=== PATIENT | male | born 1960 | race Hispanic/Latino ===

== ENCOUNTER 2016-09-01 09:28 | Inpatient (IN) | payer BC ==
[2016-09-01 10:00] VITALS: BMI 34.8
[2016-09-01 10:25] LABS: INR 1.2
[2016-09-01] MEDS ORDERED: Midazolam 2 MG/2 ML VIAL ONE (10:45)
[2016-09-01] MEDS ORDERED: Propofol 10 mg/ml Inj (20 ML) ONE (10:45)
[2016-09-01] MEDS ORDERED: metroNIDAZOLE IV 500 mg/100 ml 500 MG/100 ML BAG ONE (11:21)
[2016-09-01] MEDS ORDERED: ceFAZolin 1 gm FROZEN Premix 1 GM/50 ML ML IVPB ONE (11:22)
[2016-09-01] MEDS ORDERED: Rocuronium 10 mg/ml (5 ml) ONE (12:15)
[2016-09-01] MEDS ORDERED: Lactated Ringer's 1,000 ML IV ONE (13:02)
--- NOTE | 2016-09-01 13:05 | PCM.SURG1 ---
Surgeon's Initial Post Op Note - Surgeon's Notes Surgeon: Varun Hand Or Machine Paster: Allison PGY2 Type of Anesthesia: General Endo Pre-Operative Diagnosis: Appendicitis and umbilical hernia Operative Findings: acutely inflamed appendix and chronic incarcerated umbilical hernia Post-Operative Diagnosis: same Operation Performed: laparoscopic appendectomy and primary closure of umbilical hernia Specimen/Specimens Removed: appendix Estimated Blood Loss: EBL {In ML}: 25 Blood Products Given: N/A Drains Used: No Drains Post-Op Condition: Good Date of Surgery/Procedure: 09/01/16 Time of Surgery/Procedure: 13:04
[2016-09-01] MEDS ORDERED: Oxycodone/Acetaminophen 5/325 mg Tab PO PRN (13:07)
--- NOTE | 2016-09-01 13:11 | OP ---
PROCEDURE DATE: 09/01/2016 PREOPERATIVE DIAGNOSIS: Appendicitis. POSTOPERATIVE DIAGNOSIS: Appendicitis. PROCEDURES CARRIED OUT: 1. Laparoscopic appendectomy. 2. Open repair of chronically incarcerated umbilical hernia. SURGEON: Lex Bond Jr., MD SANDWICH HAND: Dr. Cooper. ANESTHESIOLOGIST: Dr. Rader. INDICATIONS: The patient is a 56-year-old male who is seen for evaluation of episodes of abdominal p ain. Had a CAT scan that showed appendicitis. White count was not elevated. Clinical findings were unremarkable. OPERATIVE FINDINGS: The appendix was thick and acutely inflamed. A standard laparoscopic appendecto my was carried out using two 12 mm and one 5 mm ports. There was no evidence of other intraabdominal problems. There was a very small right inguinal hernia. The left side, I was unable to visualize a dequately to see if there was a small hernia or not on the left side. In addition, there was a chron ically incarcerated umbilical hernia. DESCRIPTION OF PROCEDURE: The patient was given general anesthesia and intravenous antibiotics. Jon odyne boots were applied. A Veress needle was inserted in the midline and a 5 mm port inserted were a camera was then inserted, and then we inserted 2 additional trocars under direct vision. After thi s had been done, we had placed 3 trocars in toto. We had identified the appendix. We mobilized it. We divided the mesoappendix with a stapling device. We then divided the base of the appendix well b eyond the point of the inflammation. After checking for hemostasis, we removed the appendix in a bag . We checked again for hemostasis and it was excellent. We then used closure devices to close the t wo 12 mm ports, and these closed well and with no air leak. We then turned our attention to the umbi licus. We reprepped, redraped. Inasmuch as the only contact with an infected appendix had been in a bag which was removed and opened off the field, we proceeded then with repair this chronically incar cerated hernia through a separate incision. This was incarcerated omentum. There was no bowel invol mildred. This was reduced. After hemostasis was obtained, a V-Loc type suture was used to close the fas cial defect. No mesh was used because of the concurrent appendectomy. The skin was closed with a unger bcuticular closure. Blood loss for both procedures was less than 25 mL. OPERATION CARRIED OUT: Laparoscopic appendectomy and then open repair of umbilical hernia; no mesh w as used. Lex Bond Jr., MD cc:Lin Yeboah MD 57 TT: 09/01/2016 13:11:38 mn
--- NOTE | 2016-09-01 17:59 | CP.PCM.CON ---
<Darron Jeffery - Last Filed: 09/01/16 17:53> History of Present Illness - History of Present Illness History of Present Illness: 56M with pmh of Sarcoidosis, DM, HLD, HTN, presented s/p appedectomy, and umbilical hernia repair. Pt. had RLQ pain 1 week ago and was evaluated at his primary care physicians office several days later. She recommended CT Abd/ Pelvis which showed evidence of appendicitis and then was seen by surgery and scheduled today for the OR. Surgery was unremarkable and pt. tolerated procedure well and had no complaints. He denies headache, fever, chills, chest pain, difficulty breathing, nausea, vomiting, diarrhea, or any GI/ symptoms. PMD. Dr. 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 working at [employer]: denies Alc: denies Drug: denies Lives with family All: Tetnus - Angioedema Review of Systems - Review of Systems All systems: reviewed and no additional remarkable complaints except - Constitutional Constitutional: absent: Chills, Fever, Headache - EENT Eyes: absent: Blurred Vision, Change in Vision - Respiratory Respiratory: absent: Cough, Dyspnea, Hemoptysis - Gastrointestinal Gastrointestinal: absent: Abdominal Pain, Diarrhea, Nausea, Vomiting - Genitourinary Genitourinary: absent: Difficulty Urinating, Dysuria, Pyuria - Musculoskeletal Musculoskeletal: absent: Back Pain, Joint Swelling, Limited Range of Motion, Neck Pain, Numbness, Tingling - Integumentary Integumentary: absent: Rash, Skin Pain, Wounds - Neurological Neurological: absent: Behavioral Changes, Dizziness, Numbness, Loss of Vision, Tingling, Weakness - Endocrine Endocrine: absent: Fatigue, Flushing, Heat Intolorance, Palpitations, Polyuria Past Patient History - Past Medical History & Family History Past Medical History?: Yes - Past Social History Smoking Status: Never Smoked Chewing Tobacco Use: No Cigar Use: No Alcohol: None Drugs: Denies Home Situation {Lives}: With Family - CARDIAC Hx Hypercholesterolemia: Yes Hx Hypertension: Yes - PULMONARY Hx Respiratory Disorders: Yes (sarcoidosis) - NEUROLOGICAL Hx Neurological Disorder: Yes Hx Transient Ischemic Attacks (TIA): Yes (2 years ago) - HEENT Hx HEENT Problems: No - RENAL Hx Chronic Kidney Disease: No Hx Kidney Stones: Yes - ENDOCRINE/METABOLIC Hx Endocrine Disorders: Yes Hx Diabetes Mellitus Type 2: Yes - HEMATOLOGICAL/ONCOLOGICAL Hx Blood Disorders: No - INTEGUMENTARY Hx Dermatological Problems: No - MUSCULOSKELETAL/RHEUMATOLOGICAL Hx Musculoskeletal Disorders: Yes Hx Fractures: Yes (foot left collarbone left hx vetebrae) - GASTROINTESTINAL Hx Gastrointestinal Disorders: Yes Hx Diverticulitis: Yes (diverticulosis) - GENITOURINARY/GYNECOLOGICAL Hx Genitourinary Disorders: No - PSYCHIATRIC Hx Psychophysiologic Disorder: No - SURGICAL HISTORY Hx Surgeries: Yes Hx Arthroscopy: Yes Other/Comment: bx sarcoidosis - ANESTHESIA Hx Anesthesia: Yes Hx Anesthesia Reactions: No Hx Malignant Hyperthermia: No Has any member of the family had a problem w/ anesthesia?: No Meds Allergies/Adverse Reactions: Allergies Allergy/AdvReac Type Severity Reaction Status Date / Time Tetanus Vaccines and Toxoid Allergy ANGIOEDEMA Verified 09/01/16 09:55 - Medications Medications: Current Medications Clopidogrel Bisulfate (Plavix) 75 mg PO DAILY [facility] Lactated Ringer's (Lactated Ringer's) 1,000 mls @ 100 mls/hr IV .Q10H RAE Cefazolin Sodium 500 mg/ (Sodium Chloride) 50 mls @ 100 mls/hr IVPB Q8H RAE Metronidazole (Flagyl) 500 mg in 100 mls @ 100 mls/hr IVPB Q8H RAE Losartan Potassium (Cozaar) 100 mg PO DAILY [facility] Kptxt-6-Stad Ethyl Esters (Lovaza) 1 gm PO DAILY [facility] Ondansetron HCl (Zofran Inj) 4 mg IVP Q4 PRN PRN Reason: Nausea/Vomiting Oxycodone/Acetaminophen (Percocet 5/325 Mg Tab) 1 tab PO Q4H PRN PRN Reason: Pain, moderate (4-7) Stop: 09/04/16 13:08 Pioglitazone HCl (Actos) 45 mg PO DAILY RAE Rosuvastatin Calcium (Crestor) 20 mg PO HS RAE Vitamin B Complex/Vitamin C (Berocca) 1 tab PO BID RAE Physical Exam - Constitutional Appears: Non-toxic, No Acute Distress - Head Exam Head Exam: ATRAUMATIC, NORMAL INSPECTION, NORMOCEPHALIC - Eye Exam Eye Exam: EOMI - ENT Exam ENT Exam: Mucous Membranes Moist - Neck Exam Neck exam: Positive for: Full Rom, Normal Inspection. Negative for: Lymphadenopathy - Respiratory Exam Respiratory Exam: Clear to Auscultation Bilateral, NORMAL BREATHING PATTERN. absent: Rhonchi, Wheezes - Cardiovascular Exam Cardiovascular Exam: REGULAR RHYTHM, RRR, +S1, +S2. absent: JVD - GI/Abdominal Exam GI & Abdominal Exam: Normal Bowel Sounds, Soft. absent: Tenderness - Extremities Exam Extremities exam: Negative for: joint swelling, pedal edema, tenderness - Neurological Exam Neurological exam: Alert, CN II-XII Intact, Oriented x3, Reflexes Normal - Psychiatric Exam Psychiatric exam: Normal Affect, Normal Mood - Skin Skin Exam: Dry, Intact, Normal Color, Warm Results - Vital Signs Recent Vital Signs: Last Vital Signs Temp 98 F 09/01/16 13:02 Pulse 67 09/01/16 14:17 Resp 10 L 09/01/16 14:17 BP 111/68 09/01/16 14:17 Pulse Ox 98 09/01/16 14:17 - Labs Labs: Laboratory Results - last 24 hr 09/01/16 09/01/16 10:12 10:53 PT 13.2 H INR 1.2 APTT 31 POC Glucose (mg/dL) 147 H Assessment & Plan - Assessment and Plan (Free Text) Assessment: 56M s/p appendectomy and umbilical hernia repair. Plan: 1. s/p appendectomy/umbilical hernia repair - will follow surg recs -Percocet for pain control -LR's 100ml/hr -Metronidazole, Cefazolin -Zofran -AE Hose -Incentive Spirometer -Consistent Carb diet CBC/CMP morning labs 2. Previous TIA -Plavix -Crestor 20mg 3. HTN -Cozaar 4. DM -Actos -Accuchecks ACHS - Date & Time Date: 09/01/16 Time: 14:00 <Sadiq Lan H - Last Filed: 09/02/16 16:46> Results - Vital Signs Recent Vital Signs: Last Vital Signs Temp 97.7 F 09/02/16 09:34 Pulse 73 09/02/16 10:35 Resp 20 09/02/16 09:34 BP 100/61 09/02/16 10:35 Pulse Ox 96 09/02/16 09:34 - Labs Result Diagrams: 09/02/16 07:28 09/02/16 07:28 Labs: Laboratory Results - last 24 hr 09/01/16 09/02/16 09/02/16 21:49 06:47 07:28 WBC 5.4 D RBC 3.58 L Hgb 11.3 L D Hct 33.2 L MCV 92.7 D MCH 31.6 H MCHC 34.1 RDW 13.8 Plt Count 151 MPV 9.7 Neut % (Auto) 67.6 Lymph % (Auto) 17.9 L [place] % (Auto) 12.8 H Eos % (Auto) 1.0 Baso % (Auto) 0.7 Neut # 3.7 Lymph # 1.0 [place] # 0.7 Eos # 0.1 Baso # 0.0 Sodium Potassium Chloride Carbon Dioxide Anion Gap BUN Creatinine Est GFR ( Amer) Est GFR (Non-Af Amer) POC Glucose (mg/dL) 132 H 137 H Random Glucose Calcium Total Bilirubin AST ALT Alkaline Phosphatase Total Protein Albumin Globulin Albumin/Globulin Ratio 09/02/16 07:28 WBC RBC Hgb Hct MCV MCH MCHC RDW Plt Count MPV Neut % (Auto) Lymph % (Auto) [place] % (Auto) Eos % (Auto) Baso % (Auto) Neut # Lymph # [place] # Eos # Baso # Sodium 141 Potassium 3.9 Chloride 104 Carbon Dioxide 27 Anion Gap 14 BUN 12 Creatinine 0.8 Est GFR ( Amer) > 60 Est GFR (Non-Af Amer) > 60 POC Glucose (mg/dL) Random Glucose 123 H Calcium 8.4 L Total Bilirubin 1.0 AST 24 ALT 25 Alkaline Phosphatase 36 L D Total Protein 6.1 L Albumin 3.5 D Globulin 2.6 Albumin/Globulin Ratio 1.3 Attending/Attestation - Attestation I have personally seen and examined this patient.: Yes I have fully participated in the care of the patient.: Yes I have reviewed all pertinent clinical information: Yes Notes (Text): 09/02/16 16:44 Medical consult: Titus was seen and examined by me with the medical records administrator. Patient reports feeling ok after comming to PACU. Pain was controlled at that time. He is status post appendectomy and umbilical hernia repeat. Will continue to monitor patient Sadiq Lan
[2016-09-01] MEDS: Vitamin B Complex/Vitamin C Tab PO SCH (18:50)
[2016-09-01] MEDS: metroNIDAZOLE IV 500 mg/100 ml 500 MG/100 ML BAG IVPB SCH (19:55)
[2016-09-01] MEDS: Lactated Ringer's 1,000 ML IV SCH (20:31)
[2016-09-02] MEDS: Lactated Ringer's 1,000 ML IV SCH (00:14)
[2016-09-02] MEDS: metroNIDAZOLE IV 500 mg/100 ml 500 MG/100 ML BAG IVPB SCH (02:18)
[2016-09-02 07:43] LABS: BASO % 0.7 % (0.0-2.0); EOS # 0.1 K/uL (0.0-0.7); HEMATOCRIT 33.2 % (35.0-51.0); LYMPH % 17.9 % (20.0-40.0); MEAN CORPUSCULAR HEMOGLOBIN 31.6 pg (27.0-31.0); MEAN CORPUSCULAR HGB CONC 34.1 g/dL (33.0-37.0); MEAN PLATELET VOLUME 9.7 fL (7.2-11.7); MONO # 0.7 K/uL (0.0-0.8); MONO % 12.8 % (0.0-10.0); NRBC % 0.1 % (0.0-2.0); RED CELL DISTRIBUTION WIDTH 13.8 % (11.5-14.5)
[2016-09-02 07:50] LABS: CHLORIDE 104 mmol/L (98-107); SODIUM 141 mmol/L (132-148)
[2016-09-02 07:51] LABS: POTASSIUM 3.9 mmol/L (3.6-5.2)
[2016-09-02 07:53] LABS: ALB/GLOB RATIO 1.3 (1.0-2.1); ALKALINE PHOSPHATASE 36 U/L (38-126); ALT/SGPT 25 U/L (21-72); AST/SGOT 24 U/L (17-59); BLOOD UREA NITROGEN 12 mg/dL (9-20); CALCIUM 8.4 mg/dl (8.6-10.4); CARBON DIOXIDE 27 mmol/L (22-30); GFR AFRICAN-AMERICAN > 60; GLUCOSE,RANDOM 123 mg/dL (75-110); TOTAL PROTEIN 6.1 g/dL (6.3-8.3)
[2016-09-02 08:05] LABS: MEAN CELL VOLUME 92.7 fL (80.0-94.0); WHITE BLOOD COUNT 5.4 K/uL (4.8-10.8)
--- NOTE | 2016-09-02 09:01 | CP.PCM.DIS ---
Provider - Provider Date of Admission: 09/01/16 13:08 Attending physician: Lex Bond Jr, MD Consults: Dr. Matos, Medicine Time Spent in preparation of Discharge (in minutes): 30 Diagnosis - Discharge Diagnosis (1) Appendicitis Status: Acute (2) Umbilical hernia Status: Acute Hospital Course - Lab Results Lab Results: Most Recent Lab Values WBC 5.4 K/uL (4.8-10.8) D 09/02/16 07:28 RBC 3.58 Mil/uL (4.40-5.90) L 09/02/16 07:28 Hgb 11.3 g/dL (12.0-18.0) L D 09/02/16 07:28 Hct 33.2 % (35.0-51.0) L 09/02/16 07:28 MCV 92.7 fL (80.0-94.0) D 09/02/16 07:28 MCH 31.6 pg (27.0-31.0) H 09/02/16 07:28 MCHC 34.1 g/dL (33.0-37.0) 09/02/16 07:28 RDW 13.8 % (11.5-14.5) 09/02/16 07:28 Plt Count 151 K/uL (130-400) 09/02/16 07:28 MPV 9.7 fL (7.2-11.7) 09/02/16 07:28 Neut % (Auto) 67.6 % (50.0-75.0) 09/02/16 07:28 Lymph % (Auto) 17.9 % (20.0-40.0) L 09/02/16 07:28 [place] % (Auto) 12.8 % (0.0-10.0) H 09/02/16 07:28 Eos % (Auto) 1.0 % (0.0-4.0) 09/02/16 07:28 Baso % (Auto) 0.7 % (0.0-2.0) 09/02/16 07:28 Neut # 3.7 K/uL (1.8-7.0) 09/02/16 07:28 Lymph # 1.0 K/uL (1.0-4.3) 09/02/16 07:28 [place] # 0.7 K/uL (0.0-0.8) 09/02/16 07:28 Eos # 0.1 K/uL (0.0-0.7) 09/02/16 07:28 Baso # 0.0 K/uL (0.0-0.2) 09/02/16 07:28 PT 13.2 SECONDS (9.7-12.2) H 09/01/16 10:12 INR 1.2 09/01/16 10:12 APTT 31 SECONDS (21-34) 09/01/16 10:12 Sodium 141 mmol/L (132-148) 09/02/16 07:28 Potassium 3.9 mmol/L (3.6-5.2) 09/02/16 07:28 Chloride 104 mmol/L (98-107) 09/02/16 07:28 Carbon Dioxide 27 mmol/L (22-30) 09/02/16 07:28 Anion Gap 14 (10-20) 09/02/16 07:28 BUN 12 mg/dL (9-20) 09/02/16 07:28 Creatinine 0.8 MG/DL (0.8-1.5) 09/02/16 07:28 Est GFR ( Amer) > 60 09/02/16 07:28 Est GFR (Non-Af Amer) > 60 09/02/16 07:28 POC Glucose (mg/dL) 137 mg/dL (65-110) H 09/02/16 06:47 Random Glucose 123 mg/dL (75-110) H 09/02/16 07:28 Calcium 8.4 mg/dl (8.6-10.4) L 09/02/16 07:28 Total Bilirubin 1.0 mg/dL (0.2-1.3) 09/02/16 07:28 AST 24 U/L (17-59) 09/02/16 07:28 ALT 25 U/L (21-72) 09/02/16 07:28 Alkaline Phosphatase 36 U/L (38-126) L D 09/02/16 07:28 Total Protein 6.1 g/dL (6.3-8.3) L 09/02/16 07:28 Albumin 3.5 g/dL (3.5-5.0) D 09/02/16 07:28 Globulin 2.6 gm/dL (2.2-3.9) 09/02/16 07:28 Albumin/Globulin Ratio 1.3 (1.0-2.1) 09/02/16 07:28 - Hospital Course Hospital Course: 56M presented w. chronic appendicitis. Went to OR for laparoscopic appendectomy and primary closure of chronic umbilical hernia. Post-op pt did well. No complaints. Pain controlled. Tolerating diet. Ambulating. Voiding. Clear for D/ C from surgical standpoint. To follow up in office in 1 week. Discharge Exam - Head Exam Head Exam: ATRAUMATIC, NORMAL INSPECTION, NORMOCEPHALIC - Eye Exam Eye Exam: EOMI. absent: Scleral icterus - ENT Exam ENT Exam: Mucous Membranes Moist - Neck Exam Neck exam: Full Rom - Respiratory Exam Respiratory Exam: NORMAL BREATHING PATTERN. absent: Accessory Muscle Use, Respiratory Distress - GI/Abdominal Exam GI & Abdominal Exam: Soft. absent: Distended, Firm, Guarding, Rigid, Tenderness Additional comments: incisions C/D/I - Neurological Exam Neurological exam: Alert, Oriented x3 Discharge Plan - Follow Up Plan Condition: GOOD Disposition: HOME/ ROUTINE Patient education suggested?: Yes Instructions: Laparoscopic Appendectomy (DC), Umbilical Hernia (DC) Additional Instructions: Activity as tolerated. Follow up w. Dr. Bond in office in 1 week. Take tylenol/advil for pain. If symptoms worsen return to ED. Referrals: Lex Bond Jr., MD [Staff Provider] -
[2016-09-02 09:35] VITALS: RESP 20; TEMP 97.7; O2SAT 96
[2016-09-02] MEDS ORDERED: Omega-3-Acid Ethyl Esters 1 GM Cap PO SCH (10:00)
[2016-09-02] MEDS: Vitamin B Complex/Vitamin C Tab PO SCH (10:28)
[2016-09-02 12:11] VITALS: BP 100/61; PULSE 73
--- NOTE | 2016-09-02 20:16 | CP.PCM.PN ---
<Darron Jeffery - Last Filed: 09/02/16 23:24> Subjective - Date & Time of Evaluation Date of Evaluation: 09/02/16 Time of Evaluation: 07:10 - Subjective Subjective: PGY1 note for Dr. Lan's service 56M with pmh of Sarcoidosis, DM, HLD, HTN, presented s/p appedectomy, and umbilical hernia repair. Today pt. denies headache, fever, chills, chest pain, difficulty breathing, nausea, vomiting, diarrhea, or any GI/ symptoms. He is ambulating, tolerating his diet, and passing gas. Objective - Vital Signs/Intake and Output Vital Signs (last 24 hours): Temp Pulse Resp BP Pulse Ox 97.7 F 73 20 100/61 96 09/02/16 09:34 09/02/16 10:35 09/02/16 09:34 09/02/16 10:35 09/02/16 09:34 Intake and Output: 09/02/16 09/03/16 18:59 06:59 Intake Total 480 Balance 480 - Labs Labs: 09/02/16 07:28 09/02/16 07:28 PT 13.2 SECONDS (9.7-12.2) H 09/01/16 10:12 INR 1.2 09/01/16 10:12 APTT 31 SECONDS (21-34) 09/01/16 10:12 - Constitutional Appears: Non-toxic, No Acute Distress - Head Exam Head Exam: ATRAUMATIC, NORMAL INSPECTION, NORMOCEPHALIC - Eye Exam Eye Exam: EOMI, Normal appearance, PERRL Pupil Exam: NORMAL ACCOMODATION, PERRL - ENT Exam ENT Exam: Mucous Membranes Moist, Normal Exam - Neck Exam Neck Exam: Full ROM, Normal Inspection. absent: Lymphadenopathy - Respiratory Exam Respiratory Exam: Clear to Ausculation Bilateral, NORMAL BREATHING PATTERN - Cardiovascular Exam Cardiovascular Exam: REGULAR RHYTHM, +S1, +S2. absent: Murmur - GI/Abdominal Exam GI & Abdominal Exam: Soft, Normal Bowel Sounds. absent: Tenderness - Extremities Exam Extremities Exam: Full ROM, Normal Capillary Refill, Normal Inspection. absent : Joint Swelling, Pedal Edema - Neurological Exam Neurological Exam: Alert, Awake, CN II-XII Intact, Normal Gait, Oriented x3 - Psychiatric Exam Psychiatric exam: Normal Affect, Normal Mood - Skin Skin Exam: Dry, Intact, Normal Color, Warm Assessment and Plan - Assessment and Plan (Free Text) Assessment: 56M s/p appendectomy and umbilical hernia repair. Plan: 1. s/p appendectomy/umbilical hernia repair - will follow surg recs -Percocet for pain control -LR's 100ml/hr -Metronidazole, Cefazolin -Zofran -AE Hose -Incentive Spirometer -Consistent Carb diet CBC/CMP morning labs possible d/c today 2. Previous TIA -Plavix -Crestor 20mg 3. HTN -Cozaar 4. DM -Actos -Accuchecks ACHS <Sadiq Lan - Last Filed: 09/03/16 07:21> Objective - Vital Signs/Intake and Output Vital Signs (last 24 hours): Temp Pulse Resp BP Pulse Ox 97.7 F 73 20 100/61 96 09/02/16 09:34 09/02/16 10:35 09/02/16 09:34 09/02/16 10:35 09/02/16 09:34 - Labs Labs: 09/02/16 07:28 09/02/16 07:28 PT 13.2 SECONDS (9.7-12.2) H 09/01/16 10:12 INR 1.2 09/01/16 10:12 APTT 31 SECONDS (21-34) 09/01/16 10:12 Attending/Attestation - Attestation I have personally seen and examined this patient.: Yes I have fully participated in the care of the patient.: Yes I have reviewed all pertinent clinical information, including history, physical exam and plan: Yes Notes (Text): 09/03/16 07:14 Medical Consult: Reviewed the above note by the resident. Please note the patient had already left the hospital before I could see Sadiq Lan
--- NOTE | 2016-09-03 12:00 | CARD ---
APPROVED REPORT EKG Measurement Heart [id number] [place] [id number] <Conclusion> Normal sinus rhythm Nonspecific T wave abnormality Abnormal ECG
== END 2016-09-02 10:42 | disposition home or self-care (01) | DRG 342 ==
LOC: C.SDS 09:28 → C.5T 13:08
PROVIDERS: ADMIT Surgery Vascular Surgery; ATTEND Surgery Vascular Surgery
PROC: 0DTJ4ZZ Resection of Appendix, Percutaneous Endoscopic Approach (ICD-10-PCS; principal; 2016-09-01 13:30)
PROC: 0WQF0ZZ Repair Abdominal Wall, Open Approach (ICD-10-PCS; 2016-09-01 13:30)
DX: K35.89 Other acute appendicitis (principal); K42.0 Umbilical hernia with obstruction, without gangrene; I10 Essential (primary) hypertension; E11.9 Type 2 diabetes mellitus without complications; E78.5 Hyperlipidemia, unspecified; D86.9 Sarcoidosis, unspecified; Z86.73 Personal history of transient ischemic attack (TIA), and cerebral infarction without residual deficits; Z91.14 Patient's other noncompliance with medication regimen; E78.00 Pure hypercholesterolemia, unspecified